=== PATIENT | male | born 1990 | race Caucasian/White ===

== ENCOUNTER 2016-11-13 15:19 | Emergency (ER) | payer OTHER ==
[~2016-11-13 15:19] MED LIST: CIPRO PO; IBUPROFEN800 MG PO; NO MEDICATIONS; VIBRAMYCIN100 M1 DOB; ZOVIRAX800 MG PO
== END 2016-11-13 15:46 | disposition home or self-care (01) ==
LOC: SED 15:19
DX: L25.9 Unspecified contact dermatitis, unspecified cause (principal)
CPT/HCPCS: 99282